=== PATIENT | female | born 1980 | race Hispanic/Latino ===

== ENCOUNTER 2017-11-10 22:54 | Inpatient (IN) | payer SELFPAY ==
[~2017-11-10] VITALS: Ht 170.2 cm; Wt 86.2 kg
[2017-11-10 23:36] LABS: BASOPHILS % (AUTO) 0.2 % (0.0-5.0); EOSINOPHILS % (AUTO) 0.2 % (0.0-8.0); HEMATOCRIT 37.4 % (36-48); LYMPHOCYTES % (AUTO) 7.2 % (21.0-51.0); MEAN CORPUSCULAR HEMOGLOBIN 29.3 pg (27.0-33.0); MEAN CORPUSCULAR HGB CONC 34.4 g/dL (32.0-36.0); MEAN CORPUSCULAR VOLUME 85.1 fL (79-99); MONOCYTES % (AUTO) 6.4 % (3.0-13.0); PLATELET COUNT (AUTO) 167 K/uL (130-400); RED BLOOD CELL COUNT(AUTO) 4.39 MIL/uL (4.00-5.50); RED CELL DISTRIBUTION WIDTH 13.1 % (11.0-15.5)
[2017-11-10] MEDS ORDERED: ACETAMINOPHEN 325 MG TAB ONE (23:36)
[2017-11-10] MEDS ORDERED: SODIUM CHLORIDE 0.9% 1000ML 1,000 ML IV ONE (23:36)
[2017-11-10 23:42] LABS: APPEARANCE,URINE Clear (CLEAR); BILIRUBIN,URINE Negative (NEGATIVE); COLOR,URINE Dark Yellow (YELLOW); GLUCOSE, URINE (UA) Negative (NEGATIVE); KETONES,URINE Trace mg/dL (NEGATIVE); LEUKOCYTE ESTERASE ,URINE Negative (NEGATIVE); NITRATE,URINE Negative (NEGATIVE); OCCULT BLOOD,URINE Negative (NEGATIVE); PH,URINE 5.5 (5.0-8.0); PROTEIN,URINE Trace (NEGATIVE)
[2017-11-10 23:43] LABS: HCG,QUAL RESULT NEGATIVE (NEGATIVE)
[2017-11-10 23:48] LABS: BACTERIA,URINE None Seen /HPF (None Seen); MUCUS,URINE Few LPF (None Seen); RBC,URINE 0-1 /HPF (0-1); SQUAMOUS EPITHELIAL CELL,UR Few /HPF (0-2); WBC,URINE None Seen /HPF (0-1)
[2017-11-10 23:51] LABS: CREATININE 0.9 mg/dL (0.5-1.5); POTASSIUM 3.3 mmol/L (3.5-5.1)
[2017-11-10 23:56] LABS: ALBUMIN 3.5 g/dL (3.5-5.0); BILIRUBIN,TOTAL 0.8 mg/dL (0.2-1.0)
[2017-11-10] MEDS ORDERED: IOPAMIDOL-370 75 ML VIAL IV ONE (23:57)
[2017-11-11] MEDS ORDERED: METRONIDAZOLE 500MG/100ML BAG 100 ML ONE (01:53)
[2017-11-11 03:50] VITALS: BP 125/81
[2017-11-11] MEDS ORDERED: POTASSIUM CHLORIDE 10% ELIXIR 20 MEQ/15 ML UDCUP PO PRN (04:30)
[2017-11-11] MEDS ORDERED: ACETAMINOPHEN 325 MG TAB PO PRN (04:30)
[2017-11-11] MEDS ORDERED: ZOLPIDEM TARTRATE 5 MG TAB PO PRN (04:30)
[2017-11-11] MEDS ORDERED: CLONIDINE HCL 0.1 MG TABLET PO PRN (04:30)
[2017-11-11] MEDS ORDERED: POTASSIUM CHLORIDE 20MEQ/100ML 100 ML IV PRN (04:30)
[2017-11-11] MEDS ORDERED: ONDANSETRON HCL 4 MG/2 ML VIAL IVP PRN (04:30)
[2017-11-11] MEDS: SODIUM CHLORIDE 0.9% 1000ML 1,000 ML IV SCH ×3 (04:30→18:03)
[2017-11-11] MEDS ORDERED: ONDANSETRON HCL MDV 20ML 2 MG/ML VIAL IVP PRN (04:30)
[2017-11-11] MEDS ORDERED: MORPHINE SULFATE 2 MG/ML 1ML SYG IVP PRN (04:30)
[2017-11-11] MEDS ORDERED: LIDOCAINE HCL-MPF 1% 2ML VIAL IJ PRN (04:30)
[2017-11-11] MEDS: POTASSIUM CHLORIDE 20 MEQ ERTAB PO PRN ×2 (04:36→06:14)
[2017-11-11 07:00] VITALS: BP 109/59
[2017-11-11 07:14] LABS: HEMATOCRIT 36.9 % (36-48); MEAN CORPUSCULAR HEMOGLOBIN 29.4 pg (27.0-33.0); MEAN CORPUSCULAR HGB CONC 34.4 g/dL (32.0-36.0); MEAN CORPUSCULAR VOLUME 85.4 fL (79-99); PLATELET COUNT (AUTO) 148 K/uL (130-400); RED BLOOD CELL COUNT(AUTO) 4.31 MIL/uL (4.00-5.50); WHITE BLOOD COUNT (AUTO) 14.4 K/uL (4.8-10.8)
[2017-11-11 07:22] LABS: CREATININE 0.8 mg/dL (0.5-1.5); POTASSIUM 3.7 mmol/L (3.5-5.1)
[2017-11-11] MEDS: ACETAMINOPHEN 325 MG TAB PO PRN ×2 (07:38→16:33)
[2017-11-11] MEDS: METRONIDAZOLE 500MG/100ML BAG 100 ML IVPB SCH ×2 (10:06→16:33)
[2017-11-11] MEDS: PANTOPRAZOLE 40 MG/VIAL IVP SCH (10:07)
[2017-11-11 11:00] VITALS: BP 98/55
[2017-11-11] MEDS: LEVOFLOXACIN 500 MG/D5W 100 ML 100 ML IV SCH (11:58)
[2017-11-11 16:24] VITALS: BP 116/76
[2017-11-11 19:00] VITALS: BP 119/70
[2017-11-11] MEDS ORDERED: MORPHINE SULFATE 4 MG/1ML SYG ONE (21:13)
[2017-11-12 00:25] VITALS: BP 114/81
[2017-11-12] MEDS: SODIUM CHLORIDE 0.9% 1000ML 1,000 ML IV SCH ×4 (00:25→17:39)
[2017-11-12] MEDS: METRONIDAZOLE 500MG/100ML BAG 100 ML IVPB SCH ×3 (00:27→17:39)
[2017-11-12 04:26] VITALS: BP 111/71
[2017-11-12 06:15] LABS: HEMATOCRIT 32.8 % (36-48); MEAN CORPUSCULAR HEMOGLOBIN 30.6 pg (27.0-33.0); MEAN CORPUSCULAR HGB CONC 35.7 g/dL (32.0-36.0); MEAN CORPUSCULAR VOLUME 85.7 fL (79-99); NUCLEATED RED BLOOD CELLS 0.1 % (0.0-0.19); PLATELET COUNT (AUTO) 147 K/uL (130-400); RED BLOOD CELL COUNT(AUTO) 3.83 MIL/uL (4.00-5.50); RED CELL DISTRIBUTION WIDTH 12.9 % (11.0-15.5); WHITE BLOOD COUNT (AUTO) 10.1 K/uL (4.8-10.8)
[2017-11-12 06:34] LABS: CREATININE 0.7 mg/dL (0.5-1.5); POTASSIUM 3.2 mmol/L (3.5-5.1)
[2017-11-12 08:00] VITALS: BP 119/71
[2017-11-12] MEDS: PANTOPRAZOLE 40 MG/VIAL IVP SCH (09:17)
[2017-11-12] MEDS: POTASSIUM CHLORIDE 20 MEQ ERTAB PO PRN ×2 (10:16→15:03)
[2017-11-12] MEDS: LEVOFLOXACIN 500 MG/D5W 100 ML 100 ML IV SCH (11:12)
[2017-11-12 12:00] VITALS: BP 118/77
[2017-11-12 16:00] VITALS: BP 144/86
[2017-11-12] MEDS ORDERED: MAG HYDROX/AL HYDROX/SIMETH ES 30 ML SUSP UDCUP PO PRN (16:15)
[2017-11-12 20:00] VITALS: BP 184/82
[2017-11-13] VITALS: BP 132/78
[2017-11-13] MEDS: METRONIDAZOLE 500MG/100ML BAG 100 ML IVPB SCH ×3 (00:53→17:01)
[2017-11-13] MEDS ORDERED: MORPHINE SULFATE 4 MG/1ML SYG ONE ×2 (01:00→08:41)
[2017-11-13] MEDS: SODIUM CHLORIDE 0.9% 1000ML 1,000 ML IV SCH ×4 (02:04→22:26)
[2017-11-13 05:07] LABS: HEMATOCRIT 32.8 % (36-48); MEAN CORPUSCULAR HGB CONC 35.6 g/dL (32.0-36.0); MEAN CORPUSCULAR VOLUME 84.3 fL (79-99); PLATELET COUNT (AUTO) 163 K/uL (130-400); RED BLOOD CELL COUNT(AUTO) 3.89 MIL/uL (4.00-5.50); RED CELL DISTRIBUTION WIDTH 12.7 % (11.0-15.5); WHITE BLOOD COUNT (AUTO) 7.5 K/uL (4.8-10.8)
[2017-11-13 05:23] LABS: CREATININE 0.7 mg/dL (0.5-1.5)
[2017-11-13] MEDS: POTASSIUM CHLORIDE 20 MEQ ERTAB PO PRN ×4 (05:40→21:22)
[2017-11-13 08:00] VITALS: BP 114/74
[2017-11-13] MEDS ORDERED: DIATR MEGLU/DIATRIZOATE SODIUM 30 ML BOTTLE ONE (08:54)
[2017-11-13] MEDS: PANTOPRAZOLE SODIUM 40 MG TABLET.DR PO SCH (10:05)
[2017-11-13] MEDS ORDERED: IOPAMIDOL-370 75 ML VIAL IV ONE (11:49)
[2017-11-13] MEDS: LEVOFLOXACIN 500 MG/D5W 100 ML 100 ML IV SCH (14:08)
[2017-11-13 16:00] VITALS: BP 128/72
[2017-11-14] VITALS: BP 124/73
[2017-11-14] MEDS: METRONIDAZOLE 500MG/100ML BAG 100 ML IVPB SCH ×2 (00:27→09:29)
[2017-11-14 03:56] VITALS: BP 109/72
[2017-11-14] MEDS: PANTOPRAZOLE SODIUM 40 MG TABLET.DR PO SCH (06:17)
[2017-11-14 08:00] VITALS: BP 117/78
[2017-11-14] MEDS ORDERED: LEVO500T2 PO (10:01)
[2017-11-14] MEDS ORDERED: METR500T PO (10:01)
[2017-11-14 11:50] VITALS: BP 117/73
[2017-11-14] MEDS: LEVOFLOXACIN 500 MG/D5W 100 ML 100 ML IV SCH (12:41)
== END 2017-11-14 16:50 | disposition home or self-care (01) | DRG 392 ==
LOC: EDH 22:54 → EDHIP 22:55 → OBSVTOIN 22:55 → 3DH 11-11 02:26
PROVIDERS: ADMIT Family Medicine; ATTEND Family Medicine
DX: K52.9 Noninfective gastroenteritis and colitis, unspecified (principal); E86.0 Dehydration; E87.6 Hypokalemia
CPT/HCPCS: 36415; 74177; 80048; 80053; 81001; 81025; 83690; 84132; 85025; 85027; 87507; C9113; J1956; J2270; J3480; J3490; J7030; Q9963; Q9967

== ENCOUNTER 2019-09-02 16:44 | Emergency (ER) | payer OTHER ==
[~2019-09-02 16:44] MED LIST: LEVO500T2 PO; METR500T PO
[2019-09-02] MEDS ORDERED: DEXAMETHASONE SOD PHOSPHATE 10MG/ML 1ML VIAL ONE (17:43)
[2019-09-02] MEDS ORDERED: OXYMETAZOLINE HCL SPRAY 15 ML BOTTLE ONE (17:43)
[2019-09-02] MEDS ORDERED: KETOROLAC TROMETHAMINE 60 MG/2 ML VIAL ONE (18:07)
== END 2019-09-02 18:23 | disposition home or self-care (01) ==
LOC: EDH 16:44
DX: J11.1 Influenza due to unidentified influenza virus with other respiratory manifestations (principal); J32.1 Chronic frontal sinusitis
CPT/HCPCS: 81025; 87804 ×2; 96372 ×2; 99284; J1100; J1885

== ENCOUNTER 2020-12-22 00:15 | Inpatient (IN) | payer SELFPAY ==
[~2020-12-22] VITALS: Ht 167.6 cm; Wt 90.3 kg
[2020-12-22] MEDS ORDERED: ONDANSETRON HCL 4 MG/2 ML VIAL ONE (00:34)
[2020-12-22] MEDS ORDERED: MORPHINE SULFATE 4 MG/1ML SYG ONE (00:34)
[2020-12-22] MEDS ORDERED: SODIUM CHLORIDE 0.9% 1000ML 1,000 ML IV ONE (00:35)
[2020-12-22 01:37] LABS: BASOPHILS % (AUTO) 0.5 % (0.0-5.0); EOSINOPHILS % (AUTO) 2.7 % (0.0-8.0); HEMATOCRIT 43.3 % (36-48); LYMPHOCYTES % (AUTO) 43.3 % (21.0-51.0); MEAN CORPUSCULAR HEMOGLOBIN 29.6 pg (27.0-33.0); MEAN CORPUSCULAR HGB CONC 33.9 g/dL (32.0-36.0); MEAN CORPUSCULAR VOLUME 87.3 fL (79-99); MONOCYTES % (AUTO) 8.6 % (3.0-13.0); NEUTROPHILS % (AUTO) 44.5 % (40.0-77.0); PLATELET COUNT (AUTO) 221 K/uL (130-400); RED BLOOD CELL COUNT(AUTO) 4.96 MIL/uL (4.00-5.50); RED CELL DISTRIBUTION WIDTH 12.6 % (11.0-15.5); WHITE BLOOD COUNT (AUTO) 8.4 K/uL (4.8-10.8)
[2020-12-22 01:40] LABS: APPEARANCE,URINE Clear (CLEAR); BILIRUBIN,URINE Negative (NEGATIVE); COLOR,URINE Yellow (YELLOW); GLUCOSE, URINE (UA) Negative (NEGATIVE); KETONES,URINE Negative (NEGATIVE); LEUKOCYTE ESTERASE ,URINE Negative (NEGATIVE); NITRATE,URINE Negative (NEGATIVE); OCCULT BLOOD,URINE Negative (NEGATIVE); PH,URINE 5.5 (5.0-8.0); PROTEIN,URINE Negative (NEGATIVE)
[2020-12-22 01:41] LABS: HCG,QUAL RESULT NEGATIVE (NEGATIVE)
[2020-12-22 01:52] LABS: CREATININE 0.8 mg/dL (0.5-1.5); INR 1.05 (0.85-1.15); POTASSIUM 3.4 mmol/L (3.5-5.1); PROTHROMBIN TIME 11.4 SEC (9.6-11.6)
[2020-12-22 01:54] LABS: PARTIAL THROMBOPLASTIN TIME 25.1 SEC (26.3-35.5)
[2020-12-22 01:57] LABS: ALBUMIN 3.7 g/dL (3.5-5.0); BILIRUBIN,TOTAL 0.5 mg/dL (0.2-1.0)
[2020-12-22] MEDS: LACTATED RINGERS 1000ML 1,000 ML IV SCH ×4 (03:15→23:18)
[2020-12-22] MEDS ORDERED: POTASSIUM CHLORIDE 10MEQ/100ML 10 MEQ/100 ML ML IV SCH (03:15)
[2020-12-22] MEDS ORDERED: ONDANSETRON HCL 4 MG/2 ML VIAL IV PRN (03:30)
[2020-12-22] MEDS ORDERED: LACTATED RINGERS 1000ML IV ONE (03:30)
[2020-12-22] MEDS ORDERED: LIDOCAINE HCL-MPF 1% 2ML VIAL IJ PRN (03:30)
[2020-12-22] MEDS ORDERED: CHLORDIAZEPOXIDE HCL 25 MG CAP PO PRN ×2 (03:30)
[2020-12-22] MEDS ORDERED: NITROGLYCERIN 0.4 MG SL TAB SL PRN (03:30)
[2020-12-22] MEDS ORDERED: POTASSIUM CHLORIDE 20MEQ/100ML 100 ML IV PRN (03:30)
[2020-12-22] MEDS ORDERED: LORAZEPAM 2 MG/ML 1 ML VIAL IVP PRN ×2 (03:30)
[2020-12-22] MEDS ORDERED: PHARMACY COMMUNICATION MISC PRN (03:30)
[2020-12-22] MEDS ORDERED: LIDOCAINE HCL-MPF 1% 2ML VIAL ONE (03:35)
[2020-12-22] MEDS ORDERED: POTASSIUM CHLORIDE 20MEQ/100ML 100 ML IV ONE (03:36)
[2020-12-22] MEDS ORDERED: LACTATED RINGERS 1000ML 1,000 ML IV ONE (03:36)
[2020-12-22 03:39] LABS: ALCOHOL, BLOOD < 3 mg/dL (0-10); PHOSPHORUS 3.9 mg/dL (2.5-4.9)
[2020-12-22 03:41] LABS: AMPHET/METH SCREEN,URINE NEGATIVE (NEGATIVE); BARBITURATE SCREEN, URINE NEGATIVE (NEGATIVE); BENZODIAZEPINES SCREEN,URINE NEGATIVE (NEGATIVE); CANNABINOID SCREEN,URINE NEGATIVE (NEGATIVE); COCAINE SCREEN,URINE NEGATIVE (NEGATIVE); OPIATE SCREEN,URINE POSITIVE (NEGATIVE); PHENCYCLIDINE SCREEN,URINE NEGATIVE (NEGATIVE)
[2020-12-22 04:49] LABS: CHOLESTEROL 192 mg/dL (<200); HDL CHOLESTEROL 43 mg/dL (35-85); LDL DIRECT 129 mg/dL (0-99); TRIGLYCERIDES 83 mg/dL (30-200)
[2020-12-22] MEDS ORDERED: ERGOCALCIFEROL (VITAMIN D2) 50,000 UNIT CAPSULE PO ONE (05:00)
[2020-12-22 06:09] LABS: CRP QUANTITATIVE 9.3 mg/L (0.00-9.0)
[2020-12-22] MEDS ORDERED: POTASSIUM CHLORIDE 20 MEQ ERTAB PO ONE (06:13)
[2020-12-22 08:25] LABS: ALBUMIN 3.7 g/dL (3.5-5.0); BILIRUBIN,TOTAL 0.5 mg/dL (0.2-1.0); CREATININE 0.7 mg/dL (0.5-1.5); POTASSIUM 3.9 mmol/L (3.5-5.1)
[2020-12-22 08:30] VITALS: BP 118/68
[2020-12-22] MEDS: MULTIVITAMIN TABLET PO SCH (08:57)
[2020-12-22] MEDS: FAMOTIDINE/PF 20 MG/2 ML VIAL IV SCH ×2 (08:57→20:22)
[2020-12-22] MEDS: FOLIC ACID 1 MG TABLET PO SCH (08:57)
[2020-12-22] MEDS: ASCORBIC ACID 500 MG TAB PO SCH (08:58)
[2020-12-22] MEDS: ACETYLCYSTEINE 600 MG CAPSULE PO SCH ×2 (08:58→20:22)
[2020-12-22] MEDS: ZINC SULFATE 220 CAPSULE PO SCH (08:58)
[2020-12-22] MEDS: ENOXAPARIN SODIUM 40 MG/0.4 ML SYRINGE SQ SCH (08:58)
[2020-12-22] MEDS ORDERED: THIAMINE HCL 100 MG/ML 2ML VIAL IM SCH (09:00)
[2020-12-22] MEDS ORDERED: ENOXAPARIN SODIUM 30 MG/0.3 ML SQ SCH (09:00)
[2020-12-22 11:09] VITALS: BP 116/62
[2020-12-22 15:30] VITALS: BP 125/78
[2020-12-22 20:01] VITALS: BP 120/80
[2020-12-22 23:34] VITALS: BP 134/80
[2020-12-23 04:10] VITALS: BP 127/75
[2020-12-23 04:36] LABS: BASOPHILS % (AUTO) 0.5 % (0.0-5.0); EOSINOPHILS % (AUTO) 1.8 % (0.0-8.0); HEMATOCRIT 40.1 % (36-48); LYMPHOCYTES % (AUTO) 32.9 % (21.0-51.0); MEAN CORPUSCULAR HEMOGLOBIN 28.3 pg (27.0-33.0); MEAN CORPUSCULAR HGB CONC 32.9 g/dL (32.0-36.0); MEAN CORPUSCULAR VOLUME 85.9 fL (79-99); NEUTROPHILS % (AUTO) 57.6 % (40.0-77.0); PLATELET COUNT (AUTO) 190 K/uL (130-400); RED BLOOD CELL COUNT(AUTO) 4.67 MIL/uL (4.00-5.50); RED CELL DISTRIBUTION WIDTH 12.5 % (11.0-15.5); WHITE BLOOD COUNT (AUTO) 6.3 K/uL (4.8-10.8)
[2020-12-23 05:05] LABS: ALBUMIN 3.1 g/dL (3.5-5.0); BILIRUBIN,TOTAL 0.5 mg/dL (0.2-1.0); CREATININE 0.6 mg/dL (0.5-1.5); CRP QUANTITATIVE 6.9 mg/L (0.00-9.0); MAGNESIUM 1.8 mg/dL (1.80-2.40); POTASSIUM 3.6 mmol/L (3.5-5.1); TOTAL PROTEIN, SERUM 7.8 g/dL (6.0-8.3)
[2020-12-23 07:30] VITALS: BP 119/71
[2020-12-23] MEDS: ASCORBIC ACID 500 MG TAB PO SCH (08:25)
[2020-12-23] MEDS: ACETYLCYSTEINE 600 MG CAPSULE PO SCH (08:25)
[2020-12-23] MEDS: FOLIC ACID 1 MG TABLET PO SCH (08:25)
[2020-12-23] MEDS: ZINC SULFATE 220 CAPSULE PO SCH (08:25)
[2020-12-23] MEDS: MULTIVITAMIN TABLET PO SCH (08:25)
[2020-12-23] MEDS: ENOXAPARIN SODIUM 40 MG/0.4 ML SYRINGE SQ SCH (08:26)
[2020-12-23] MEDS: LACTATED RINGERS 1000ML 1,000 ML IV SCH (08:26)
[2020-12-23] MEDS ORDERED: THIAMINE HCL 100 MG/ML 2ML VIAL IVP SCH (09:00)
[2020-12-23] MEDS: FAMOTIDINE/PF 20 MG/2 ML VIAL IV SCH (09:31)
[2020-12-23 12:39] VITALS: BP 128/85
[2020-12-23 16:00] VITALS: BP 120/73
== END 2020-12-23 18:47 | disposition home or self-care (01) | DRG 438 ==
LOC: EDH 00:15 → EDHIP 00:16 → 2AH 08:08
PROVIDERS: ADMIT Internal Medicine; ATTEND Internal Medicine
DX: K85.20 Alcohol induced acute pancreatitis without necrosis or infection (principal); U07.1 COVID-19; R65.10 Systemic inflammatory response syndrome (SIRS) of non-infectious origin without acute organ dysfunction; E87.6 Hypokalemia; K76.0 Fatty (change of) liver, not elsewhere classified; Z68.32 Body mass index [BMI] 32.0-32.9, adult; E66.9 Obesity, unspecified; Z82.3 Family history of stroke; Z83.3 Family history of diabetes mellitus; Z82.49 Family history of ischemic heart disease and other diseases of the circulatory system; Z82.5 Family history of asthma and other chronic lower respiratory diseases
CPT/HCPCS: 36415; 71046; 76705; 80053; 80061; 80305; 81003; 81025; 82550; 82728; 83605; 83615; 83690; 83735; 84100; 84145; 84484; 85025; 85378; 85610; 85730; 86140; 87040; 87426; 93005; G0378; J1650; J2270; J2405; J3411; J3480; J3490; J7030; J7120

== ENCOUNTER 2023-12-23 14:01 | Emergency (ER) | payer BC, OTHER ==
[~2023-12-23] VITALS: Ht 152.4 cm; Wt 94.3 kg
[2023-12-23 14:40] LABS: APPEARANCE,URINE CLEAR (CLEAR); BILIRUBIN,URINE NEGATIVE (NEGATIVE); COLOR,URINE YELLOW (YELLOW); GLUCOSE, URINE (UA) NEGATIVE (NEGATIVE); KETONES,URINE 5 mg/dL (NEGATIVE); LEUKOCYTE ESTERASE ,URINE NEGATIVE Leu/uL (NEGATIVE); NITRATE,URINE NEGATIVE (NEGATIVE); OCCULT BLOOD,URINE LARGE (NEGATIVE); PH,URINE 5.5 (5.0-8.0); PROTEIN,URINE NEGATIVE (NEGATIVE); UROBILINOGEN,URINE 0.2 mg/dL (0.2-1.0)
[2023-12-23 14:43] LABS: ADD UA MICROSCOPIC YES
[2023-12-23 14:48] LABS: BACTERIA,URINE RARE /HPF (None Seen); MUCUS,URINE RARE LPF (None Seen); SQUAMOUS EPITHELIAL CELL,UR RARE /HPF (0-2)
[2023-12-23 14:57] LABS: BASOPHILS # (AUTO) 0.04 K/uL (0.00-0.20); BASOPHILS % (AUTO) 0.5 % (0.0-5.0); EOSINOPHILS # (AUTO) 0.32 K/uL (0.00-0.70); EOSINOPHILS % (AUTO) 4.1 % (0.0-8.0); HEMATOCRIT 36.9 % (36-48); IMMATURE GRANULOCYTE ABSOLUTE 0.02 K/uL (0-1); LYMPHOCYTES # (AUTO) 2.5 K/uL (1.0-4.8); LYMPHOCYTES % (AUTO) 32.5 % (21.0-51.0); MEAN CORPUSCULAR HEMOGLOBIN 29.2 pg (27.0-33.0); MEAN CORPUSCULAR HGB CONC 33.1 g/dL (32.0-36.0); MEAN CORPUSCULAR VOLUME 88.3 fL (79-99); MONOCYTES # (AUTO) 0.6 K/uL (0.1-1.0); MONOCYTES % (AUTO) 7.1 % (3.0-13.0); NEUTROPHILS # (AUTO) 4.3 K/uL (1.8-7.7); NEUTROPHILS % (AUTO) 55.5 % (40.0-77.0); PLATELET COUNT (AUTO) 215 K/uL (130-400); RED BLOOD CELL COUNT(AUTO) 4.18 MIL/uL (4.00-5.50); RED CELL DISTRIBUTION WIDTH 13.5 % (11.0-15.5); WHITE BLOOD COUNT (AUTO) 7.8 K/uL (4.8-10.8)
[2023-12-23] MEDS: 0.9%NACL 1000ML 1,000 ML IV ONE (15:00)
[2023-12-23 15:06] LABS: CREATININE 0.7 mg/dL (0.5-1.0); POTASSIUM 3.9 mmol/L (3.5-5.1)
[2023-12-23] MEDS ORDERED: IBUP-2077 PO (18:44)
[2023-12-23] MEDS ORDERED: MEDR10TA PO (18:44)
[2023-12-23] MEDS: MEDROXYPROGESTERONE ACET 5 MG TAB PO SCH (18:49)
[2023-12-23 19:19] VITALS: BP 122/81; PULSE 82; RESP 17; O2SAT 99
== END 2023-12-23 19:12 | disposition home or self-care (01) ==
LOC: EDH 14:01
DX: D25.9 Leiomyoma of uterus, unspecified (principal); N93.8 Other specified abnormal uterine and vaginal bleeding; I10 Essential (primary) hypertension
CPT/HCPCS: 36415; 76856; 80048; 81001; 84703; 85025; 86850; 86900; 86901